=== PATIENT | male | born 1990 | race African-American/Black ===

== ENCOUNTER 2022-03-06 07:38 | Emergency (ER) | payer MEDICAID ==
[~2022-03-06] VITALS: Ht 170.2 cm; Wt 66.0 kg
[2022-03-06 07:41] VITALS: BP 166/97
[2022-03-06 12:34] LABS: EOSINOPHILS % 5.2 % (0.0-5.0); HEMATOCRIT. 41.5 % (42.0-52.0); HEMOGLOBIN. 14.1 g/dL (14.0-18.0); LYMPHOCYTES % 45.7 % (20.0-50.0); MEAN CORPUSCULAR HEMOGLOBIN 28.5 pg (28.0-32.0); MEAN CORPUSCULAR VOLUME 84.1 fL (80.0-94.0); MEAN PLATELET VOLUME 9.8 fl (7.4-10.4); MONOCYTES % 13.6 % (2.0-8.0); NEUTROPHILS % 34.5 % (40.0-76.0); PLATELET 171 x1000/uL (130-400); RED BLOOD CELL COUNT 4.94 mill/uL (4.7-6.1); RED CELL DISTRIBUTION WIDTH 13.2 % (11.6-14.6)
[2022-03-06 12:41] LABS: CHLORIDE 104 mEq/L (98-107)
== END 2022-03-06 13:45 | disposition home or self-care (01) ==
LOC: ER 07:38
DX: R59.0 Localized enlarged lymph nodes (principal)
CPT/HCPCS: 36415; 71045; 80053; 85025; 99284